=== PATIENT | female | born 1980 | race Caucasian/White ===

== ENCOUNTER 2017-01-08 10:30 | Emergency (ER) | payer OTHER ==
[2017-01-08 10:42] VITALS: TEMP 97.9
[2017-01-08] MEDS ORDERED: Lidocaine 5% Patch TD STA (10:59)
--- NOTE | 2017-01-08 11:05 | ED PDOC ---
Arrival/HPI - General Chief Complaint: Back Pain Time Seen by Provider: 01/08/17 10:41 Historian: Patient - History of Present Illness Narrative History of Present Illness (Text): 01/08/17 10:55 Cyn Jacob is a 36 year old female, whose past medical history includes sciatica and asthma, presents to the emergency department complaining of lower back pain for the past three days. Patient reports three days ago it was hard for her to get out of bed due to the pain, and today it has become worse to the point that she needed assistance from her to help her get around. Patient denies these symptoms are related to her sciatica. Patient notes taking Ibuprofen but there is no significant change. Patient denies any numbness, shortness of breath , chest pain, abdominal pain, or other complaints. PMD: [place] Time/Duration: < week (3 days) Symptom Onset: Sudden Symptom Course: Worsening Activities at Onset: Rest Modifying Factors (Text): worse with movement Context: Home Past Medical History - Provider Review Nursing Documentation Reviewed: Yes - Cardiac Hx Cardiac Disorders: No - Pulmonary Hx Respiratory Disorders: No - Neurological Hx Neurological Disorder: No - HEENT Hx HEENT Disorder: No - Renal Hx Renal Disorder: No - Endocrine/Metabolic Hx Endocrine Disorders: No - Hematological/Oncological Hx Blood Disorders: No - Integumentary Hx Dermatological Disorder: No - Musculoskeletal/Rheumatological Hx Back Pain: Yes Other/Comment: FX ANKLE - Gastrointestinal Hx Gastrointestinal Disorders: No - Genitourinary/Gynecological Hx Genitourinary Disorders: No - Psychiatric Hx Psychophysiologic Disorder: No Hx Substance Use: No - Surgical History Hx Orthopedic Surgery: Yes - Anesthesia Hx Anesthesia: Yes Family/Social History - Physician Review Nursing Documentation Reviewed: Yes Family/Social History: Unknown Family HX Smoking Status: Light Smoker < 10 Cigarettes Daily Hx Alcohol Use: Yes Frequency of alcohol use: Socially Hx Substance Use: No Allergies/Home Meds Allergies/Adverse Reactions: Allergies No Known Allergies Allergy (Verified 01/08/17 10:37) Home Medications: Home Meds Medication Instructions Recorded Confirmed Albuterol HFA [Ventolin HFA 90 2 puff NEB PRN PRN 01/08/17 01/08/17 mcg/actuation (8 g)] Review of Systems - Review of Systems Constitutional: absent: Fevers Respiratory: absent: SOB Cardiovascular: absent: Chest Pain Gastrointestinal: absent: Abdominal Pain Musculoskeletal: Back Pain (lower back) Neurological: absent: Headache Physical Exam Vital Signs Reviewed: Yes Vital Signs Temp Pulse Resp BP Pulse Ox 01/08/17 11:48 69 18 148/79 98 01/08/17 10:37 97.9 F 71 16 150/84 97 Temperature: Afebrile Blood Pressure: Normal Pulse: Regular Respiratory Rate: Normal Appearance: Positive for: Well-Appearing, Non-Toxic, Comfortable Pain Distress: None Mental Status: Positive for: Alert and Oriented X 3 - Systems Exam Head: Present: Atraumatic, Normocephalic Pupils: Present: PERRL Extroacular Muscles: Present: EOMI Conjunctiva: Present: Normal Mouth: Present: Moist Mucous Membranes Neck: Present: Normal Range of Motion Respiratory/Chest: Present: Clear to Auscultation, Good Air Exchange. No: Respiratory Distress, Accessory Muscle Use Cardiovascular: Present: Regular Rate and Rhythm, Normal S1, S2. No: Murmurs Abdomen: Present: Normal Bowel Sounds. No: Tenderness, Distention, Peritoneal Signs Back: Present: Normal Inspection, Paraspinal Tenderness (more on right compared to left), Pain with Leg Raise ((+) for right leg) Upper Extremity: Present: Normal Inspection. No: Cyanosis, Edema Lower Extremity: Present: Normal Inspection. No: Edema Neurological: Present: GCS=15, CN II-XII Intact, Speech Normal Skin: Present: Warm, Dry, Normal Color. No: Rashes Psychiatric: Present: Alert, Oriented x 3, Normal Insight, Normal Concentration Medical Decision Making ED Course and Treatment: 01/08/17 Impression: 36 year old female with paraspinal tenderness. Positive for pain on right leg raise. Differential Diagnosis included but are not limited to: lumbar strain vs. sciatica Plan: -- Lidoderm -- Toradol -- Valium -- Reassess and disposition Progress Notes: 01/08/17 11:51 Patient feels significantly better. She is able to stand up with no problems walking. She will take medications as needed for symptoms. She was also advised on some stretching excercises to start off slowly. - Medication Orders Current Medication Orders: Discontinued Medications Diazepam (Valium) 5 mg PO ONCE ONE PRN Reason: Protocol Stop: 01/08/17 11:00 Last Admin: 01/08/17 11:22 Dose: 5 mg Ketorolac Tromethamine (Toradol) 60 mg IM STAT STA Stop: 01/08/17 11:00 Last Admin: 01/08/17 11:20 Dose: 60 mg Lidocaine (Lidoderm) 1 ea TD STAT STA Stop: 01/08/17 11:00 Last Admin: 01/08/17 11:22 Dose: 1 ea - Scribe Statement The provider has reviewed the documentation as recorded by the Scribe 01/08/2017 Gabriela Jacksondua Provider Scribe Attestation: All medical record entries made by the Scribe were at my direction and personally dictated by me. I have reviewed the chart and agree that the record accurately reflects my personal performance of the history, physical exam, medical decision making, and the department course for this patient. I have also personally directed, reviewed, and agree with the discharge instructions and disposition. Disposition/Present on Arrival - Present on Arrival Any Indicators Present on Arrival: No History of DVT/PE: No History of Uncontrolled Diabetes: No Urinary Catheter: No History of Decub. Ulcer: No History Surgical Site Infection Following: None - Disposition Have Diagnosis and Disposition been Completed?: Yes Diagnosis: Back muscle spasm Disposition: HOME/ ROUTINE Disposition Time: 11:52 Patient Plan: Discharge Patient Problems: Current Active Problems Problem Status Onset Back muscle spasm Acute Condition: IMPROVED Discharge Instructions (ExitCare): Muscle Spasm (ED) Additional Instructions: Nidia, thank you for letting us take care of you today. Your provider was Dr. Plata. You were treated for Back Spasm. The emergency medical care you received today was directed at your acute symptoms. If you were prescribed any medication, please fill it and take as directed. It may take several days for your symptoms to resolve. Return to the Emergency Department if your symptoms worsen, do not improve, or if you have any other problems. Please contact your doctor or call one of the physicians/clinics you have been referred to that are listed on the Patient Visit Information form that is included in your discharge packet. Bring any paperwork you were given at discharge with you along with any medications you are taking to your follow up visit. Our treatment cannot replace ongoing medical care by a primary care provider (PCP) outside of the emergency department. Thank you for allowing the [facility] team to be part of your care today. If you had an X-Ray or CT scan: A Radiologist will review the ED reading if any change in treatment is needed we will contact you. If you had a blood, urine, or wound culture: It will take several days for the results, if any change in treatment is needed we will contact you. If you had an STI test: It will take 48 hours for the results. Please call after 1 week if you have not heard back. Prescriptions: Cyclobenzaprine [Flexeril] 5 mg PO TID PRN #20 tab PRN Reason: Muscle Spasm Lidocaine 5% [Lidoderm] 1 ea TD DAILY PRN #4 patch PRN Reason: Pain, Moderate (4-7) Naproxen 500 mg PO BID PRN #30 tab PRN Reason: Pain, Moderate (4-7) Referrals: [facility] Carla Lantigua, [Primary Care Provider] - Follow up with primary Forms: [facility] ([place]), WORK NOTE
[2017-01-08 11:49] VITALS: BP 148/79; PULSE 69; RESP 18; O2SAT 98
== END 2017-01-08 11:52 | disposition home or self-care (01) ==
LOC: MERGE 10:30 → ED 10:30
DX: M62.830 Muscle spasm of back (principal)
CPT/HCPCS: 96372; 99283; J1885